=== PATIENT | female | born 1950 | race Two or more races ===

== ENCOUNTER 2019-04-06 19:31 | Inpatient (IN) | payer MEDICARE, MEDICAID ==
[~2019-04-06] VITALS: Ht 160 cm; Wt 87.5 kg
--- NOTE | 2019-04-06 20:02 | NUR ---
CONTRACT COORDINATOR NOTES RECEIVED PT FROM EMT. A/O X 4 WITH DAUGHTER AT BEDSIDE. ON ROOM AIR SATURATING WELL. IV ACCESS RAC G20 PATENT AND INTACT. HEAD OF BED ELEVATED. SIDE RAILS UP. CALL LIGHT WITHIN REACH. BED ALARM ON. WILL CONTINUE TO MONITOR PT CLOSELY.
--- NOTE | 2019-04-06 20:06 | NUR ---
SUTURE WINDER HAND NOTES PAGED [facility] FOR ADMITTING ORDERS.
--- NOTE | 2019-04-06 20:31 | NUR ---
PAGED EPIC X 3 FOR ADMITTING ORDERS.
--- NOTE | 2019-04-06 21:00 | NUR ---
CIGARETTE PAPER TESTER NOTES CHRISSIE BOSTON MADE AWARE OF THE ADMISSION.
[2019-04-06 21:09] VITALS: BP 137/69
[2019-04-06] MEDS ORDERED: ZOLPIDEM TARTRATE 5 MG TABLET PO PRN (22:30)
[2019-04-06] MEDS ORDERED: ONDANSETRON HCL/PF 4 MG/2 ML VIAL IVP PRN (22:30)
[2019-04-06] MEDS ORDERED: MORPHINE SULFATE INJ 2 MG/ML DISP.SYRIN IV PRN (22:30)
[2019-04-06] MEDS ORDERED: Z GUARD REMEDY 2 OZ OINT TP PRN (22:30)
[2019-04-07] VITALS: BP 123/66
[2019-04-07] MEDS: ACETAMINOPHEN 325 MG TABLET PO PRN ×2 (01:36→21:03)
[2019-04-07 04:00] VITALS: BP 129/59
[2019-04-07] MEDS ORDERED: LOSA1TAB36 PO (04:13)
[2019-04-07] MEDS ORDERED: LEVO100T9 PO (04:17)
[2019-04-07] MEDS ORDERED: METH2.5T PO (04:17)
[2019-04-07 06:47] LABS: BASOPHILS % (AUTO) 0.4 % (0.0-2.0); EOSINOPHILS % (AUTO) 2.1 % (0.0-6.0); HEMATOCRIT 40 % (33-45); HEMOGLOBIN 13.5 g/dL (11.5-14.8); LYMPHOCYTES # (AUTO) 1.6 /CMM (0.8-4.8); LYMPHOCYTES % (AUTO) 30.7 % (20.0-44.0); MEAN CORPUSCULAR HGB CONC 34 g/dl (31.0-36.0); MEAN CORPUSCULAR VOLUME 92 fL (82-100); MONOCYTES # (AUTO) 0.5 /CMM (0.1-1.30); MONOCYTES % (AUTO) 9.4 % (2.0-12.0); NEUTROPHILS # (AUTO) 3.1 /CMM (1.8-8.9); NEUTROPHILS % (AUTO) 57.4 % (43.0-81.0); PLATELET COUNT (AUTO) 155 /CMM (150-450); RED BLOOD CELL COUNT(AUTO) 4.34 MIL/uL (4.0-5.2); WHITE BLOOD COUNT (AUTO) 5.3 K/uL (4.3-11.0)
[2019-04-07 07:01] LABS: BILIRUBIN,TOTAL 0.4 mg/dL (0.2-1.0); CALCIUM, SERUM 8.9 mg/dL (8.5-10.1); CREATININE 0.8 mg/dL (0.6-1.3); MAGNESIUM 1.8 mg/dL (1.8-2.4); PHOSPHORUS 3.9 mg/dL (2.5-4.9)
[2019-04-07 07:07] LABS: THYROID STIMULATING HORMONE 1.928 uIU/mL (0.358-3.74)
--- NOTE | 2019-04-07 07:30 | NUR ---
SEO ANALYST NOTES NO ACUTE CHANGES NOTED DURING THE SHIFT. NO ACTIVE BLEEDING NOTED. WILL ENDORSE TO THE AM NURSE FOR CONTINUITY OF CARE.
--- NOTE | 2019-04-07 07:30 | NUR ---
FIELD ARTILLERY OPERATIONS SPECIALIST INITIAL NOTES RECEIVED PT IN BED, ASLEEP EASILY AROUSABLE WITH FAMILY AT BEDSIDE. PT IS CROATIAN SPEAKING A/OX4. ON ROOM AIR; NO S/SX OF RESP DISTRESS. PT IS AFEBRILE. SB-ST ON MONITOR. NO BM THIS MORNING. NO ACTIVE BLEEDING NOTED. NO C/O PAIN. BED IN LOCKED/LOWEST POSITION. CALL LIGHT IN REACH. WILL CONT TO MONITOR.
[2019-04-07] MEDS ORDERED: LOSA50TA39 PO (07:39)
[2019-04-07 08:00] VITALS: BP 108/66
[2019-04-07] MEDS: PANTOPRAZOLE 40 MG VIAL IV SCH ×2 (08:41→17:30)
--- NOTE | 2019-04-07 11:37 | NUR ---
MULTIMEDIA DEVELOPER NOTES NOTIFIED DR FLOWERS ABOUT PT. WILL SEE PT.
--- NOTE | 2019-04-07 11:49 | NUR ---
COUNTY DEMONSTRATOR NOTES PER DR FLOWERS, START PT ON REGULAR DIET FOR TODAY. TMRW CLEAR LIQUID AND BEGIN PREP FOR COLONOSCOPY ON TUESDAY. PT WISHES TO DO COLONOSCOPY INPATIENT.
[2019-04-07 12:00] VITALS: BP 105/60
--- NOTE | 2019-04-07 12:05 | NUR ---
BIODIESEL OPERATIONS MANAGER NOTES PRISCILLA AUTOMATION OPERATOR ROUNDING WITH PATIENT. NOTIFIED OF COLONOSCOPY ON TUESDAY
[2019-04-07 16:00] VITALS: BP 110/61
--- NOTE | 2019-04-07 16:20 | NUR ---
PHOTOGRAPH PRINTER NOTES PT HAD 1 BM, SOFT BROWN STOOL WITH BRIGHT RED BLOOD-APPROX 10CC
--- NOTE | 2019-04-07 18:58 | NUR ---
MS RN CLOSING NOTES PT STABLE RESTING WITH FAMILY AT BEDSIDE. PT UNDERSTANDS COLONOSCOPY TO BE DONE ON TUESDAY; WILL BE PREPPED TMRW. PER DR FLOWERS, CLEAR LIQUIDS TMRW. WILL ENDORSE TO PM NURSE FOR TOÑO.
[2019-04-07 20:00] VITALS: BP 107/40
--- NOTE | 2019-04-07 20:00 | NUR ---
HOLLIS RN INITIAL NOTES RECEIVED PT IN BED, AWAKE WITH FAMILY AT BEDSIDE. PT IS ARMENIAN SPEAKING ONLY A/OX4. ON ROOM AIR; NO S/SX OF RESP DISTRESS NOTED AT THIS TIME, NO SOB. PT IS AFEBRILE. NO ACTIVE BLEEDING NOTED AT THIS TIME. PATIENT COMPLAINT OF 7/10 PAIN AND ASKED FOR TYLENOL. IV LINE IS PATIENT AND INTACT W/O IVF. BED IN LOCKED/LOWEST POSITION. CALL LIGHT IN REACH. WILL CONT TO MONITOR.
[2019-04-08 04:00] VITALS: BP 126/54
[2019-04-08 06:10] LABS: BASOPHILS % (AUTO) 0.4 % (0.0-2.0); EOSINOPHILS % (AUTO) 2.2 % (0.0-6.0); HEMATOCRIT 41 % (33-45); HEMOGLOBIN 14.1 g/dL (11.5-14.8); LYMPHOCYTES # (AUTO) 2.1 /CMM (0.8-4.8); LYMPHOCYTES % (AUTO) 31.7 % (20.0-44.0); MEAN CORPUSCULAR HGB CONC 34 g/dl (31.0-36.0); MEAN CORPUSCULAR VOLUME 91 fL (82-100); MONOCYTES # (AUTO) 0.7 /CMM (0.1-1.30); MONOCYTES % (AUTO) 9.8 % (2.0-12.0); NEUTROPHILS # (AUTO) 3.8 /CMM (1.8-8.9); NEUTROPHILS % (AUTO) 55.9 % (43.0-81.0); PLATELET COUNT (AUTO) 165 /CMM (150-450); RED BLOOD CELL COUNT(AUTO) 4.55 MIL/uL (4.0-5.2); WHITE BLOOD COUNT (AUTO) 6.7 K/uL (4.3-11.0)
[2019-04-08 06:31] LABS: CALCIUM, SERUM 9.2 mg/dL (8.5-10.1); CREATININE 0.8 mg/dL (0.6-1.3); MAGNESIUM 1.9 mg/dL (1.8-2.4); PHOSPHORUS 4.2 mg/dL (2.5-4.9)
[2019-04-08] MEDS: ACETAMINOPHEN 325 MG TABLET PO PRN (06:45)
--- NOTE | 2019-04-08 07:33 | NUR ---
HOLLIS RN CLOSING NOTES PT STABLE RESTING IN BED PT UNDERSTANDS COLONOSCOPY TO BE DONE ON TUESDAY; WILL BE PREPPED TMRW. PT IS A/A/OX4, ON RA WITH SPO2 OF 98%, NO SOB, NO DISCOMFORT NOTED AT THIS TIME. WILL ENDORSE TO PM NURSE FOR TOÑO.
[2019-04-08 08:00] VITALS: BP 123/62
[2019-04-08] MEDS: PANTOPRAZOLE 40 MG VIAL IV SCH ×2 (08:27→16:22)
[2019-04-08] MEDS: LOSARTAN POTASSIUM 50 MG TABLET PO SCH ×3 (10:21→20:36)
[2019-04-08] MEDS: LEVOTHYROXINE SODIUM 100 MCG TABLET PO SCH (10:21)
[2019-04-08 16:00] VITALS: BP 125/72
[2019-04-08] MEDS ORDERED: PHENYLEPHRINE/SHK LV/MO/PET,WH 30 GM TUBE RC PRN (17:00)
[2019-04-08 19:59] VITALS: BP 126/80
[2019-04-08 20:00] VITALS: BP 126/80
[2019-04-08] MEDS ORDERED: PEG 3350/NA SULF,BICARB,CL/KCL 4,000 ML BOTTLE PO ONE (20:00)
--- NOTE | 2019-04-08 20:00 | NUR ---
HOLLIS RN INITIAL NOTES RECEIVED PT IN BED, AWAKE WITH FAMILY AT BEDSIDE. PT IS LUXEMBOURGISH SPEAKING ONLY A/OX4. ON ROOM AIR; NO S/SX OF RESP DISTRESS NOTED AT THIS TIME, NO SOB. PT IS AFEBRILE. NO ACTIVE BLEEDING NOTED AT THIS TIME. PATIENT HAS NO COMPLAINT OF PAIN AT THIS TIME .IV LINE IS PATIENT AND INTACT W/O IVF. PATIENT WILL BE PREPED FOR TOMORROW'S COLONOSCOPY. BED IN LOCKED/LOWEST POSITION. CALL LIGHT IN REACH. WILL CONT TO MONITOR.
[2019-04-09 03:59] VITALS: BP 130/77
[2019-04-09 04:00] VITALS: BP 130/77
[2019-04-09 04:56] LABS: BASOPHILS % (AUTO) 0.1 % (0.0-2.0); EOSINOPHILS % (AUTO) 2.8 % (0.0-6.0); HEMATOCRIT 44 % (33-45); HEMOGLOBIN 14.7 g/dL (11.5-14.8); LYMPHOCYTES # (AUTO) 0.9 /CMM (0.8-4.8); MEAN CORPUSCULAR HGB CONC 33 g/dl (31.0-36.0); MEAN CORPUSCULAR VOLUME 91 fL (82-100); MONOCYTES # (AUTO) 0.4 /CMM (0.1-1.30); NEUTROPHILS # (AUTO) 5.5 /CMM (1.8-8.9); NEUTROPHILS % (AUTO) 78.1 % (43.0-81.0); PLATELET COUNT (AUTO) 181 /CMM (150-450); RED BLOOD CELL COUNT(AUTO) 4.82 MIL/uL (4.0-5.2)
[2019-04-09 05:06] LABS: CALCIUM, SERUM 9.5 mg/dL (8.5-10.1); CREATININE 0.9 mg/dL (0.6-1.3); MAGNESIUM 1.9 mg/dL (1.8-2.4); PHOSPHORUS 3.4 mg/dL (2.5-4.9); POTASSIUM 4.1 mmol/L (3.5-5.1)
[2019-04-09] MEDS ORDERED: SORBITOL SOLUTION 30 ML PO ONE (06:00)
--- NOTE | 2019-04-09 06:15 | NUR ---
HOLLIS RN CLOSING NOTES PT STABLE RESTING IN BED PT UNDERSTANDS COLONOSCOPY TO BE DONE TODAY. BOWEL PREP HAS BEEN DONE.PT IS A/A/OX4, ON RA WITH SPO2 OF 98%, NO SOB, NO DISCOMFORT NOTED AT THIS TIME. WILL ENDORSE TO AM NURSE FOR TOÑO.
[2019-04-09] MEDS ORDERED: ANESTHESIA TRAY IN PYXIS 1 EA TRAY MC ONE (06:52)
--- NOTE | 2019-04-09 07:30 | NUR ---
MS RN INITIAL NOTES RECEIVED PT IN BED, C/O NAUSEA, PT HAS BEEN PREPPED FOR COLONOSCOPY. FAMILY AT BEDSIDE. ADMINISTERED PRN ZOFRAN. IV SITE PATENT INTACT ON RAC #20. BED IN LOCKED/LOWEST POSITON. CALL LIGHT IN REACH. VS WNL. WILL CONT TO MONITOR.
[2019-04-09] MEDS: LEVOTHYROXINE SODIUM 100 MCG TABLET PO SCH (07:44)
[2019-04-09 08:00] VITALS: BP 113/67
--- NOTE | 2019-04-09 08:15 | NUR ---
MS RN NOTES PT TRANSPORTED BY OR NURSES TO COLONOSCOPY PROCEDURE.
[2019-04-09] MEDS ORDERED: ALBUTEROL 17GM INHALER ONE (08:42)
[2019-04-09] MEDS ORDERED: METHOTREXATE SODIUM (2.5MG) 2.5 MG TABLET PO SCH (09:30)
--- NOTE | 2019-04-09 09:45 | NUR ---
MS RN NOTES PT RETURNED TO ROOM 105. VS 123/72 80P 94% O2 ON 2L NC. 18RR AND TEMP 97.8. FAMILY AT BEDSIDE. PER DR FLOWERS, PT OK TO BE DISCHARGED.
[2019-04-09] MEDS: PANTOPRAZOLE 40 MG VIAL IV SCH (09:56)
[2019-04-09] MEDS: LOSARTAN POTASSIUM 50 MG TABLET PO SCH (09:56)
[2019-04-09 12:00] VITALS: BP 110/58
--- NOTE | 2019-04-09 13:13 | NUR ---
MS RN NOTES PT LEFT UNIT, YARN COMBER WHEELED OUT WITH DAUGHTER ACCOMPANYING. IV REMOVED. DISCHARGE INSTRUCTIONS IN HAND, ID BAND REMOVED. NO NEW PRESCRIPTIONS. PRISCILLA WOMACK SPOKE WITH PT REGARDING OTC MEDS. ALL NEEDS ATTENDED TO.
== END 2019-04-09 13:15 | disposition home or self-care (01) | DRG 395 ==
LOC: MEDSG1 19:31 → TELE1 19:58 → MEDSG1 04-07 18:50
PROVIDERS: ADMIT Hospitalist; ATTEND Nurse Practitioner Acute Care
PROC: 0DJD8ZZ Inspection of Lower Intestinal Tract, Via Natural or Artificial Opening Endoscopic (ICD-10-PCS; principal; 2019-04-09)
DX: K64.8 Other hemorrhoids (principal); E03.9 Hypothyroidism, unspecified; I10 Essential (primary) hypertension; K64.9 Unspecified hemorrhoids; K57.30 Diverticulosis of large intestine without perforation or abscess without bleeding; K64.4 Residual hemorrhoidal skin tags
CPT/HCPCS: 36415; 80048-TC; 80053-TC; 80061-TC; 83735-TC; 84100-TC; 84443-TC; 85025-TC; 86850-TC; 87081-TC; C9113; G0378; J2405; J2765; J3490; J8610